=== PATIENT | male | born 1985 | race Caucasian/White ===

== ENCOUNTER 2023-03-31 12:38 | Emergency (ER) | payer BC ==
[2023-03-31] MEDS ORDERED: traMADol 50 MG Tab PO ONE (12:48)
== END 2023-03-31 13:00 | disposition home or self-care (01) ==
LOC: CC.ED 12:38
DX: S46.212A Strain of muscle, fascia and tendon of other parts of biceps, left arm, initial encounter (principal); X50.0XXA Overexertion from strenuous movement or load, initial encounter
CPT/HCPCS: 99283; A9270-GY